=== PATIENT | female | born 1950 | race African-American/Black ===

== ENCOUNTER 2017-07-08 08:42 | Emergency (ER) | payer OTHER ==
[~2017-07-08] VITALS: Ht 167.6 cm; Wt 67.0 kg
[2017-07-08] MEDS ORDERED: TRAMADOL 50MG TABLET PO ONE (11:15)
[2017-07-08 11:45] VITALS: BP 135/72
== END 2017-07-08 11:48 | disposition home or self-care (01) ==
LOC: ER 09:19
DX: S92.354A Nondisplaced fracture of fifth metatarsal bone, right foot, initial encounter for closed fracture (principal); M79.7 Fibromyalgia; X58.XXXA Exposure to other specified factors, initial encounter; Y93.89 Activity, other specified; Y92.89 Other specified places as the place of occurrence of the external cause; Y99.8 Other external cause status; Z88.8 Allergy status to other drugs, medicaments and biological substances
CPT/HCPCS: 29515; 73030; 73630; 81025; 93971; 99284